=== PATIENT | female | born 1990 | race Caucasian/White ===

== ENCOUNTER 2022-03-28 10:50 | Emergency (ER) | payer OTHER, SELFPAY ==
[2022-03-28 10:56] VITALS: BP 173/98; PULSE 85; RESP 20; TEMP 36.7; O2SAT 100
--- NOTE | 2022-03-28 11:01 | ED.SKABFB ---
HPI - Skin/Abscess/Foreign Bdy General Chief complaint: Skin/Abscess/Foreign Body Stated complaint: poison sumac or lewis Time Seen by Provider: 03/28/22 11:02 Source: patient and RN notes reviewed History of Present Illness HPI narrative: Patient is a 32-year-old female presents the urgent care with complaints of poison lewis to bilateral arms, lower legs and near the right buttocks. Patient states that she pulled weeds on and Monday noticed the itchy rash. Patient states that she gets it quite frequently. States that she has been using hydrocortisone cream and TecNu scrub [id number]. No other acute complaints. No acute distress noted. Patient aware of the plan of care. Some parts of this dictation were generated by voice recognition software and may contain typographical and/or grammatical inaccuracies. Related Data Home Medications Medication Instructions Recorded Confirmed omeprazole 40 mg capsule,delayed 40 mg PO DAILY 03/28/22 03/28/22 release valacyclovir 500 mg tablet 500 mg PO PRN Cold Sores 03/28/22 valsartan 160 160 tablet PO DAILY 03/28/22 03/28/22 mg-hydrochlorothiazide 12.5 mg tablet Allergies Allergy/AdvReac Type Severity Reaction Status Date / Time Penicillins Allergy Mild RASH, Verified 03/28/22 11:01 BUMPS ON THROAT, ORAL AND THROAT SWELLING lisinopril Allergy Cough Verified 03/28/22 11:01 Review of Systems Review of Systems: CONSTITUTIONAL: Denies fever, chills, or sweats. EYES: Denies visual changes, redness, or discharge. ENT: Denies rhinorrhea, congestion, sore throat, or otalgia. CARDIOVASCULAR: Denies chest pain, palpitations, or edema. RESPIRATORY: Denies cough or dyspnea. GASTROINTESTINAL: Denies abdominal pain, nausea, vomiting, or diarrhea. GENITOURINARY: Denies dysuria or hematuria. SKIN: Reports of an itchy rash to bilateral arms, legs and near the right buttocks MUSCULOSKELETAL: Denies back pain, joint pain, or myalgia. NEUROLOGIC: Denies headache, numbness, or weakness. All other systems reviewed are negative, except as documented in HPI. [facility] Family History Family History (Updated 06/09/15 @ 13:14 by DOCTOR UNKNOWN) Mother Hypertension Other Diabetes mellitus Family history of alcoholism Family history of arthritis Social History Social History Smoking status: Never smoker Alcohol intake: never Comments At the time of my signature, I reviewed and agree with the nursing past medical, surgical, social, and family history. There is no relevant family history pertinent to the patient complaint. Exam Narrative: GENERAL: This is a well-nourished, well-developed patient, in no apparent distress. HEAD: normocephalic, atraumatic. EYES: PERRL. Sclera clear/white. Vision is grossly intact. EARS: External ears normal NOSE: External nose normal with no obvious nasal discharge, nares without redness, no rhinorrhea. THROAT: Mucous membranes moist NECK: Neck supple SKIN: Scattered Rhus dermatitis with mild erythema, without drainage to bilateral forearms, bilateral lower legs, and reported near the right buttocks. NEURO: awake, alert, and oriented to person, place and time. There were no obvious focal neurologic abnormalities. EXTREMITIES: No clubbing, cyanosis, or edema. Course Course Level of Care: Express Care Visit Vital Signs Vital signs: Vital Signs Temperature 98.0 F 03/28/22 10:56 Pulse Rate 85 03/28/22 10:56 Respiratory Rate 20 03/28/22 10:56 Blood Pressure 173/98 H 03/28/22 10:56 Pulse Oximetry 100 03/28/22 10:56 Oxygen Delivery Room Air 03/28/22 10:56 Temperature 98.0 F 03/28/22 11:04 Pulse Rate 85 03/28/22 11:04 Respiratory Rate 20 03/28/22 11:04 Blood Pressure 173/98 H 03/28/22 11:04 Pulse Oximetry 100 03/28/22 11:04 Oxygen Delivery Room Air 03/28/22 11:04 Reviewed-patient is informed that they may have pre-hypertension or hypertension based on a blood
[2022-03-28 11:04] VITALS: BP 173/98; PULSE 85; RESP 20; TEMP 36.7; O2SAT 100
== END 2022-03-28 11:15 | disposition home or self-care (01) ==
PROVIDERS: Emergency Provider Nurse Practitioner Family; PCP Family Medicine
DX: L23.7 Allergic contact dermatitis due to plants, except food (principal); I10 Essential (primary) hypertension; K21.9 Gastro-esophageal reflux disease without esophagitis
CPT/HCPCS: 99213; G0463

== ENCOUNTER 2022-11-13 10:51 | Emergency (ER) | payer OTHER, SELFPAY ==
[2022-11-13 10:55] VITALS: BP 162/91; PULSE 90; RESP 16; TEMP 36.8; O2SAT 99
--- NOTE | 2022-11-13 11:15 | ED.SKABFB ---
HPI - Skin/Abscess/Foreign Bdy General Chief complaint: Skin/Abscess/Foreign Body Stated complaint: Rash Source: patient and RN notes reviewed History of Present Illness HPI narrative: 32 yo F presents to urgent care with complaints of an itchy rash to her bilateral forearms since Monday. Pt states the rash is now on her abdomen and a small area is now on her face today. Pt states she and her sister have been working in their mother's yard and she is sure it is poison lewis or something of the like. Denies any SOB, chest pain, fevers, or chills. Pt has been using triamcinolone cream with no relief. Related Data Home Medications Medication Instructions Recorded Confirmed omeprazole 40 mg capsule,delayed 40 mg PO DAILY 03/28/22 11/13/22 release valsartan 160 160 tablet PO DAILY 03/28/22 11/13/22 mg-hydrochlorothiazide 12.5 mg tablet metoprolol succinate 50 mg 50 mg PO DAILY 11/13/22 11/13/22 tablet,extended release 24 hr Allergies Allergy/AdvReac Type Severity Reaction Status Date / Time Penicillins Allergy Mild RASH, Verified 11/13/22 11:03 BUMPS ON THROAT, ORAL AND THROAT SWELLING lisinopril AdvReac Mild Cough Verified 11/13/22 11:03 Review of Systems Review of Systems: Pertinent positives and pertinent negatives per HPI. [facility] Family History Family History (Updated 06/09/15 @ 13:14 by DOCTOR UNKNOWN) Mother Hypertension Other Diabetes mellitus Family history of alcoholism Family history of arthritis Social History Social History Smoking status: Never smoker Alcohol intake: never Comments At the time of my signature, I reviewed and agree with the nursing past medical, surgical, social, and family history. There is no relevant family history pertinent to the patient complaint. Exam Narrative: GENERAL: This is a well-nourished, well-developed patient, in no apparent distress. HEAD: normocephalic, atraumatic. EYES: Sclera clear/white. Vision is grossly intact. EARS: External ears normal, auditory canals clear and without drainage. Hearing grossly intact. NOSE: External nose normal with no obvious nasal discharge, nares without redness, no rhinorrhea. THROAT: Mucous membranes moist, posterior pharynx clear. NECK: Neck supple, non-tender without lymphadenopathy, masses or thyromegaly. CARDIOVASCULAR: Regular rate and rhythm without murmurs, gallops, or rubs. RESPIRATORY: Clear to auscultation. Breath sounds equal bilaterally. No wheezes, rales, or rhonchi. SKIN: erythremic, linear, rashes to bilateral arms and abdomen. NEURO: awake, alert, and oriented to person, place and time. There were no obvious focal neurologic abnormalities. EXTREMITIES: No clubbing, cyanosis, or edema. No joint tenderness, effusion, or edema noted. BACK: Nontender without deformity or crepitus. No flank tenderness. Course Course Level of Care: Express Care Visit Vital Signs Vital signs: Vital Signs Temperature 98.3 F 11/13/22 10:55 Pulse Rate 90 11/13/22 10:55 Respiratory Rate 16 11/13/22 10:55 Blood Pressure 162/91 H 11/13/22 10:55 Pulse Oximetry 99 11/13/22 10:55 Oxygen Delivery Room Air 11/13/22 10:55 Temperature 98.3 F 11/13/22 10:55 Pulse Rate 90 11/13/22 10:55 Respiratory Rate 16 11/13/22 10:55 Blood Pressure 162/91 H 11/13/22 10:55 Pulse Oximetry 99 11/13/22 10:55 Oxygen Delivery Room Air 11/13/22 10:55 Reviewed MDM - Skin/Abscess/Foreign Bdy MDM Narrative Medical decision making narrative: Prevention is always better than treatment. Learn to identify poison lewis, oak, and sumac and avoid it. Wear long sleeves, long pants, shoes, and socks. If you touched the plant, try to keep your hands away from your eyes, mouth, and face. Wash the skin thoroughly with soap and cool water as soon as possible. Scrub under the fingernails with a brush to prevent spreading of the resin to other parts of the body by touching or sc
== END 2022-11-13 11:20 | disposition home or self-care (01) ==
PROVIDERS: Emergency Provider Nurse Practitioner Family; PCP Family Medicine
DX: L25.9 Unspecified contact dermatitis, unspecified cause (principal); K21.9 Gastro-esophageal reflux disease without esophagitis
CPT/HCPCS: 99213; G0463